=== PATIENT | female | born 1990 | race Asian ===

== ENCOUNTER 2018-04-19 20:57 | Emergency (ER) | payer OTHER ==
[2018-04-19] MEDS: DERMABOND TOPICAL SKIN ADHESIVE TOP (23:15)
== END 2018-04-19 23:46 | disposition home or self-care (01) ==
LOC: M ED 20:57
DX: S61.519A Laceration without foreign body of unspecified wrist, initial encounter (principal); W26.0XXA Contact with knife, initial encounter; Y92.009 Unspecified place in unspecified non-institutional (private) residence as the place of occurrence of the external cause
CPT/HCPCS: 12001

== ENCOUNTER 2018-09-21 08:06 | Emergency (ER) | payer OTHER ==
[~2018-09-21] VITALS: Ht 167.6 cm; Wt 56.0 kg
[2018-09-21 10:16] LABS: HEMATOCRIT 38.4 % (36.0-47.0); HEMOGLOBIN 12.6 g/dl (12.0-15.5); MEAN CORPUSCULAR HEMOGLOBIN 29.9 pg (27.0-33.0); MEAN CORPUSCULAR HGB CONC 32.8 g/dl (32.0-36.5); PLATELET COUNT, AUTOMATED 250 10^3/uL (150-450); RED BLOOD COUNT 4.22 10^6/uL (4.00-5.40); WHITE BLOOD COUNT 7.6 10^3/uL (4.0-10.0)
[2018-09-21 10:22] LABS: BLOOD UREA NITROGEN 10 MG/DL (7-18); CALCIUM LEVEL 8.8 MG/DL (8.5-10.1); CARBON DIOXIDE LEVEL 24 MEQ/L (21-32); CHLORIDE LEVEL 105 MEQ/L (98-107); CREATININE FOR GFR 0.48 MG/DL (0.55-1.30); GLOMERULAR FILTRATION RATE > 60.0 (>60); GLUCOSE, FASTING 83 MG/DL (70-100); POTASSIUM SERUM 4.3 MEQ/L (3.5-5.1); SODIUM LEVEL 139 MEQ/L (136-145)
--- NOTE | 2018-09-21 11:18 | REP ---
CT Head without contrast HISTORY: Trauma COMPARISON: None There is no intraparenchymal hemorrhage, acute infarct, mass or midline shift. The ventricular system is normal in appearance. There is no extra cerebral collection. There is no fracture. The visualized sinuses are clear. IMPRESSION: There is no intracranial lesion. Electronically Signed by Luis Enrique Savage MD 09/21/2018 11:08 A
--- NOTE | 2018-09-21 11:19 | REP ---
CT cervical spine without contrast HISTORY: Trauma COMPARISON: None There is no acute fracture or subluxation. There is no disc bulge or herniation. The spinal canal and neural foramina are patent. The intervertebral discs and vertebral bodies are normal in height. IMPRESSION: There is no acute fracture or subluxation. Electronically Signed by Luis Enrique Savage MD 09/21/2018 11:10 A
[2018-09-21 13:19] VITALS: BP 117/70
--- NOTE | 2018-09-21 13:34 | REP ---
Emergency first trimester obstetric sonography: History: Syncope. Findings: Transabdominal scanning demonstrates a single living intrauterine gestation in a free-floating lie. Embryonic pole measures 37 mm in crown-rump length. This corresponds with a gestational age estimate of 10 weeks 4 days. heart rate is recorded at 162 beats per minute. No extrauterine abnormalities observed. No gross anomaly is seen. No subchorionic hemorrhage is seen. Impression: Viable single intrauterine gestation at 10 weeks 4 days by crown-rump length. DELMER by sonography April 15, 2019. No complication is identified. Electronically Signed by Nilo Martin MD 09/21/2018 05:32 P
--- NOTE | 2018-09-22 17:28 | ECGEPIP ---
Stationary ECG Study [facility] - ED Test Date: 2018-09-21 Pat Name: JOSE RAFAEL CHAPMAN Department: Room: - Gender: F Thread Spinner: TC : 1990 Requested By: Trell Perkins Order Number: [id number] Reading MD: Gwen Mark Measurements Intervals [place] Rate: 73 P: 70 RI: 196 QRS: 84 QRSD: 83 T: 51 QT: 378 QTc: 417 Interpretive Statements SINUS RHYTHM NO PRIOR FOR COMPARISON Electronically Signed On 09-22-2018 17:27:56 EST by Gwen Mark
== END 2018-09-21 13:32 | disposition home or self-care (01) ==
LOC: M ED 08:06 → EDBD 08:06 → M ED 13:32
DX: O26.891 Other specified pregnancy related conditions, first trimester (principal); R55 Syncope and collapse; Z3A.10 10 weeks gestation of pregnancy

== ENCOUNTER 2021-01-08 22:14 | Inpatient (IN) | payer OTHER ==
[~2021-01-08] VITALS: Ht 165.1 cm; Wt 68.6 kg
[2021-01-08 22:32] VITALS: BP 136/89
[2021-01-08] MEDS ORDERED: LACTATED RINGER'S 1000 ML IV ONE (22:40)
[2021-01-08] MEDS ORDERED: LR 1,000 ML IV SCH (22:40)
[2021-01-08] MEDS ORDERED: OXYTOCIN 30 UNITS IN 0.9% NaCl 500ML IV BAG (J2590) As Ordered ONE (22:41)
[2021-01-08 23:01] LABS: HEMOGLOBIN 12.2 g/dl (12.0-15.5); MEAN CORPUSCULAR HGB CONC 32.1 g/dl (32.0-36.5); MEAN CORPUSCULAR VOLUME 90.5 fl (80.0-96.0); PLATELET COUNT, AUTOMATED 205 10^3/uL (150-450); WHITE BLOOD COUNT 8.6 10^3/uL (4.0-10.0)
[2021-01-08] MEDS ORDERED: OXYTOCIN INJ 10 UNITS/ML VIAL (J2590) As Ordered ONE (23:16)
[2021-01-08 23:39] VITALS: BP 129/84
[2021-01-08 23:40] LABS: CORD GAS ABE A -1.9; CORD GAS HCO3 A 25.3 MEQ/L; CORD GAS O2 SAT A 56.4 %; CORD GAS O2 SAT V 81.9 %; CORD GAS PCO2 A 52.6 mmHg; CORD GAS PH A 7.3 UNITS; CORD GAS PH V 7.385 UNITS; CORD GAS PO2 A 23.4 mmHg; CORD GAS PO2 V 36.3 mmHg; CORD GAS SBC A 21.9 MEQ/L; CORD GAS SBC V 23.3 MEQ/L; CORD GAS TCO2 A 26.9 MEQ/L; CORD GAS TCO2 V 25.2 MEQ/L
[2021-01-08 23:55] VITALS: BP 123/57
[2021-01-09] VITALS (8 sets, daily range): BP systolic 110–140; BP diastolic 62–94
--- NOTE | 2021-01-09 00:11 | HPEPDOC ---
Obstetrical History & Physical General Date of Admission January 08, 2021 at 22:38 Primary Care Physician: Ariel Culp MD History of Present Illness SROM CLEAR AT 39 WEEKS CONTRACTIONS MODERATE Chief Complaint: Contractions, term Information Provided By: Patient Age: 30 : 2 Term: 1 Pre-term: 0 Abortions: 0 Livin Care Care: Good Care Number of Visits: 7 Dating Final EDC: January 14, 2021 Final EDC for Daily Update: January 14, 2021 Final EDC by: LMP LMP: Apr 18, 2020 1st Trimester Date: Jul 12, 2020 Weeks + Days: 13.3 Estimated Date of Confinement: January 14, 2021 EGA at Admission: 39.0 Antepartum Course Diagnos(e)s SROM CLEAR AND ACTIVE CONTRACTIONS Height (inches): 60 Pre- weight (lbs.): 123.0 Admission Weight (lbs.): 151.0 Change in Weight (lbs.): 28 Past Medical History Past Obstetrical History : Past Obstetrical History: Multigravida Date of Delivery: Apr 02, 2019 Gestation: 39 Type of Delivery: Spontaneous Vaginal Del. Sex of Infant: Male Weight of Infant (grams): 3600 Complications: No INDEX CLERK History: No pertinent history Past Medical History Surgical History: Denies/None Family History Significant Family History: No pertinent family hx Social History Social history NON SMOKER NO ETOH NO VAPING NO RECREATIONAL DRUGS Marital Status: Family situation: Spouse/partner home Psychosocial History: No pertinent psych hx * Smoker: non-smoker Alcohol: Denies Drugs: denies Abuse Violence Screening Have you been hit/kicked/slapp: No Have you been sexually assault: No Imunizations Tdap status: current Influenza Status: current Allergies Coded Allergies: No Known Allergies (Unverified , 04/19/18) Medications No Active Prescriptions or Reported Meds Physical Examination Physical Examination GENERAL: Alert and oriented times three. BREAST: . ABDOMEN: Gravid and non-tender to touch. FETUS: Is vertex (VTX) by sterile vaginal examination (SVE), fetus is vertex (VTX) by [place]. HEART RATE: Regular rate and rhythm. LUNGS: Clear to auscultation (CTA). EXTREMITIES: No edema. No clonus. Deep tendon reflexes (DTRs) + . Other physical findings ACUTE DISTRESS RUPTURED MEMBRANES ACTIVE CONTRACTIONS Vital Signs/I&O Vital Signs Date Time Temp Pulse Resp B/P (MAP) Pulse Ox O2 Delivery O2 Flow Rate FiO2 01/08/21 22:32 97.6 78 136/89 (105) Laboratory Data 24H LABS Laboratory Tests 2 01/08/21 22:43: Serology Scanned Report Hepatitis B Testing 01/08/21 22:54: Nucleated Red Blood Cells % (auto) 0.0 01/08/21 23:29: Cord Arterial Blood pH 7.300, Cord Arterial Blood PCO2 52.6, Cord Arterial Blood PO2 23.4, Cord Arterial Blood HCO3 25.3, Cord Arterial Blood Total CO2 26.9, Cord Arterial Blood Base Excess -1.9, Cord Arterial Base Excess (Standard 21.9, Cord Arterial Bld Oxygen Saturation 56.4, Cord Venous Blood pH 7.385, Cord Venous Blood PCO2 41.0, Cord Venous Blood PO2 36.3, Cord Venous Blood HCO3 24.0, Cord Venous Blood Total CO2 25.2, Cord Venous Base Excess (Actual) -1.0, Cord Venous Base Excess (Standard) 23.3, Cord Venous Blood Oxygen Saturation 81.9 CBC/BMP Laboratory Tests 01/08/21 22:54 Pertinent Laboratoy Data Blood Type: B+ RBC Antibody Screen: Negative HIV: Negative Hepatitis B: Negative Rapid Plasma Reagin: Nonreactive Rubella: Immune Varicella: Immune Chlamydia/Gonorrhea: Negative Group B Streptococcus: Negative Cystic Fibrosis: Negative Anatomy Ultrasound Ultrasound Date: Aug 28, 2020 Placenta Location: Anterior Normal Anatomy: Yes Placenta Previa: No Estimated Weight (grams): 367 Steroid Therapy Steroid Therapy: No Vaginal Examination Dilation: 8 cm Effacement: 80% Station: -3 Cervical Consistency: Soft Presentation: Cephalic presentation Assessment Variability: Moderate Accelerations: Present Decelerations: None Tocometer Contractions: Yes Frequency: regular Duration: less than 60 seconds Strength: palpated as strong Assessment/Plan Assessment 30 year-old (G)2 para (P1 at 39 weeks by 13.3 week ultrasound. Presents to Labor and Delivery (L&D) [facility] CLEAR FLUID Plan Admit and orient. 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 Diet: NPO Group B Streptococcus (GBS) [negative]. Labs and intravenous (IV) per unit protocol. Counseled on Pitocin POST DELIVERY. Lactated Ringers (LR): Bolus 1000 mL, then at 125 mL/hr. Anticipate [normal spontaneous delivery ()]. C-S as appropriate. Labor and Delivery Counseling REVIEWED VAGINAL DELIVERY WITH POSSIBLE REPAIR OF PERINEUM VAGINAL MURRAY CER VIX BLADDER OR BOWEL . REMOTE BLOOD TRANSFUSION RE ATONIC UTERUS OR PPH Ariel Culp MD January 09, 2021 00:10
[2021-01-09] MEDS ORDERED: RHOGAM 300 MCG (1500 IU) INJ (J2790) IM SCH (00:15)
[2021-01-09] MEDS ORDERED: ANUSOL HC CREAM 30GM TOP PRN (00:15)
[2021-01-09] MEDS ORDERED: MOM 30ML SUSPENSION UDC PO PRN (00:15)
[2021-01-09] MEDS ORDERED: METHYLERGONOVINE MALEATE 0.2 MG TAB PO PRN (00:15)
[2021-01-09] MEDS ORDERED: IBUPROFEN 800 MG TAB PO PRN (00:15)
[2021-01-09] MEDS ORDERED: OXYTOCIN DRIP 30 UNITS in IV 1 EA IV ONE (00:15)
[2021-01-09] MEDS ORDERED: DIBUCAINE 1% OINTMENT 30GM TOP PRN (00:15)
[2021-01-09] MEDS ORDERED: ACETAMINOPHEN 500 MG TAB PO PRN (00:15)
[2021-01-09] MEDS ORDERED: IBUPROFEN 600MG TAB PO PRN (00:15)
[2021-01-09] MEDS ORDERED: DOCUSATE SODIUM 100MG CAPSULE PO PRN (00:15)
[2021-01-09] MEDS ORDERED: OXYTOCIN INJ 10 UNITS/ML VIAL (J2590) IV ONE (00:15)
[2021-01-09] MEDS ORDERED: ACETAMINOPHEN TAB 650MG DOSE (2X325MG) PO PRN (00:15)
[2021-01-09] MEDS ORDERED: MEASLES,MUMPS,RUBELLA VACCINE INJ (MMR-II) (90707) SC SCH (00:15)
[2021-01-09] MEDS: PRENATAL VITAMINS CHEWABLE TABLET PO SCH (08:09)
--- NOTE | 2021-01-09 12:38 | DN ---
DELIVERY NOTE DATE OF DELIVERY: 01/08/2021 This lady is a 2, para 1 at 39 weeks of gestation, admitted with spontaneous rupture of membranes, contractions, in active labor. She was found to be 7-8 cm, anterior, soft, 80% effaced, vertex presenting. She rapidly progressed to full dilatation and delivered over a small first-degree tear live- male infant weighing 7 pounds 7 ounces, 3380 grams, scores of 9 and 9 at one and five minutes, respectively. Arterial pH 7.30, base excess -1.9, venous pH 7.38, base excess -1.0. The placenta delivered spontaneously thereafter, three vessels in the cord. membranes and tissues intact. Reviewing the cervix, anterior, posterior, lateral pruett, and the first-degree tear, everything was intact. The uterus contracted well down on Pitocin. The first-degree tear was oversewn in the usual fashion with a 2 on a J339. Sphincter was intact. The patient and baby tolerating the procedure well.
[2021-01-10 06:00] VITALS: BP 114/66
--- NOTE | 2021-01-10 06:36 | IPNPDOC ---
Progress Note Date of Service: January 10, 2021 Day#: 2 Progress Note SUBJECT: Ms. Bright is a 30yo PPD2 s/p c/b 1MLL. She has been ambulating, voiding spontaneously without issue and tolerating regular diet. Breast feeding without issue. Reports lochia is like a normal period. Patient is ambulating well. Reports some cramping with . Denies any pain. Voiding and passing flatus without difficulty. OBJECTIVE: VITAL SIGNS: Within normal limits, afebrile. Alert and oriented times three. No increased WOB Heart rate: non-tachycardic Abdomen: Fundus firm at U-2. Soft, NTTP. Minimal lochia. ASSESSMENT: Ms. Bright is a 30yo PPD2 s/p c/b 1MLL. Vitals within normal limits, afebrile, hemodynamically stable with no evidence of infection. PLAN: 1. Discharge to home today. 2. Tylenol and Motrin for pain. 3. Encourage breast feeding and ambulation. 4. Desires minipill for contraception, order placed for berry picker at [place] 5. Routine PP visit in 6 weeks in clinic. 6. Discussed return precautions at length. VS, I&O, 24H, Fishbone Vital Signs/I&O Vital Signs Date Time Temp Pulse Resp B/P (MAP) Pulse Ox O2 Delivery O2 Flow Rate FiO2 01/09/21 18:00 98.3 72 16 110/71 (84) 100 Room Air LAURA LUTZ DO January 10, 2021 06:36
--- NOTE | 2021-01-10 06:36 | OBDS ---
[facility] Obstetrical Discharge Sum. Obstetrical Discharge Summary Date: January 10, 2021 A/P, Post Course List any complications Delivery Summary: 2, para 1 at 39 weeks of gestation, admitted with spontaneous rupture of membranes, contractions, in active labor. She was found to be 7-8 cm, anterior, soft, 80% effaced, vertex presenting. She rapidly progressed to full dilatation and delivered over a small first-degree tear live- male infant weighing 7 pounds 7 ounces, 3380 grams, scores of 9 and 9 at one and five minutes, respectively. Arterial pH 7.30, base excess -1.9, venous pH 7.38, base excess -1.0. The placenta delivered spontaneously thereafter, three vessels in the cord. membranes and tissues intact. Reviewing the cervix, anterior, posterior, lateral pruett, and the first-degree tear, everything was intact. The uterus contracted well down on Pitocin. The first-degree tear was oversewn in the usual fashion with a 2 on a J339. Sphincter was intact. The patient and baby tolerating the procedure well. Visit Summary: Ms. Bright is a 30yo after a spontaneous vaginal delivery complicated by a first degree midline laceration. Her antepartum course was uncomplicated. She has been ambulating, voiding spontaneously without issue and tolerating regular diet. Breast feeding without issue. Reports lochia is like a normal period. Patient is ambulating well. Reports some cramping with . Denies any pain. Voiding and passing flatus without difficulty. Vitals within normal limits, afebrile, hemodynamically stable with no evidence of infection. PLAN: 1. Discharge to home today. 2. Tylenol and Motrin for pain. 3. Encourage breast feeding and ambulation. 4. Desires minipill for contraception, order placed for peanut picker at [place] 5. Routine PP visit in 6 weeks in clinic. 6. Discussed return precautions at length. LAURA LUTZ DO January 10, 2021 06:36
[2021-01-10 07:05] LABS: HEMATOCRIT 36.5 % (36.0-47.0); HEMOGLOBIN 11.6 g/dl (12.0-15.5); MEAN CORPUSCULAR HEMOGLOBIN 29.1 pg (27.0-33.0); MEAN CORPUSCULAR HGB CONC 31.8 g/dl (32.0-36.5); MEAN CORPUSCULAR VOLUME 91.5 fl (80.0-96.0); PLATELET COUNT, AUTOMATED 173 10^3/uL (150-450); RED BLOOD COUNT 3.99 10^6/uL (4.00-5.40); WHITE BLOOD COUNT 7.8 10^3/uL (4.0-10.0)
[2021-01-10] MEDS: PRENATAL VITAMINS CHEWABLE TABLET PO SCH (08:43)
== END 2021-01-10 10:15 | disposition home or self-care (01) | DRG 807 ==
LOC: M LDO 22:14 → M LDI 22:38 → M OBS 01-09 01:53
PROVIDERS: ADMIT Obstetrics & Gynecology; ATTEND Obstetrics & Gynecology
PROC: 10E0XZZ Delivery of Products of Conception, External Approach (ICD-10-PCS; principal; 2021-01-08)
PROC: 0HQ9XZZ Repair Perineum Skin, External Approach (ICD-10-PCS; 2021-01-08)
DX: O70.0 First degree perineal laceration during delivery (principal); Z37.0 Single live birth; Z3A.39 39 weeks gestation of pregnancy